=== PATIENT | female | born 1990 ===

== ENCOUNTER → 2020-11-08 | Outpatient (CLI) | payer OTHER | END | disposition home or self-care (01) | LOC: MAMO-SONO 13:15 → SONOGRAMA 13:32 | PROVIDERS: ATTEND Obstetrics & Gynecology | DX: D28.0 Benign neoplasm of vulva (principal); K58.8 Other irritable bowel syndrome; D72.818 Other decreased white blood cell count; R59.0 Localized enlarged lymph nodes; D25.9 Leiomyoma of uterus, unspecified ==